=== PATIENT | male | born 1975 ===

== ENCOUNTER 2019-11-25 15:58 | Emergency (ER) | payer OTHER ==
--- NOTE | 2019-11-25 16:11 | EDM.PDOC ---
ED HPI GENERAL MEDICAL PROBLEM - General Chief Complaint: Lower Extremity Injury/Pain Stated Complaint: INJURY LT KNEE Time Seen by Provider: 11/25/19 15:59 Source of Information: Reports: Patient History Limitations: Reports: No Limitations - History of Present Illness INITIAL COMMENTS - FREE TEXT/NARRATIVE: HISTORY AND PHYSICAL: History of present illness: Patient is a 44-year-old male who presents to the emergency room with complaints of internal left knee pain. 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 He is able to bear weight and ambulate appropriately although has a dull nagging discomfort of the left lower extremity. He denies any direct injury or fall. Denies any numbness, tingling, saddle paresthesia or weakness. Denies any other extremity involvement. Offers no systemic complaints. Review of systems: As per history of present illness and below otherwise all systems reviewed and negative. Past medical history: As per history of present illness and as reviewed below otherwise noncontributory. Surgical history: As per history of present illness and as reviewed below otherwise no ncontributory. Social history: See social history for further information Family history: As per history of present illness and as reviewed below otherwise noncontributory. Physical exam: General: Well-developed and well-nourished 44-year-old male. Alert and oriented. Nontoxic-appearing and in no acute distress. HEENT: Atraumatic, normocephalic, pupils equal and reactive bilaterally, negati ve for conjunctival pallor or scleral icterus, mucous membranes moist, TMs normal bilaterally, throat clear, neck supple, nontender, trachea midline. No drooling or trismus noted. No meningeal signs. No hot potato voice noted. Lungs: Clear to auscultation, breath sounds equal bilaterally, chest nontender. Heart: S1S2, regular rate and rhythm without overt murmur Abdomen: Soft, nondistended, nontender. Negative for masses or hepatosplenomegaly. Negative for costovertebral tenderness. Skin: Intact, warm, dry. No lesions or rashes noted. Extremities: He moves all extremities per self without difficulty or deficits, negative for cords or calf pain. Denies any knee discomfort with palpation. Negative drawer test. No knee instability noted. No soft tissue swelling or erythema noted. Strong pedal pulse positive CMS. Neurovascular unremarkable. Neuro: Awake, alert, oriented. Cranial nerves II through XII unremarkable. Cerebellum unremarkable. Motor and sensory unremarkable throughout. Exam nonfocal. Notes: Did discuss the limitations of the emergency room, he is agreeable to an x-ray at this time. We discussed the likelihood of him needing further imaging such as an MRI at a later date if pain continues. His x-ray shows no acute findings. Knee patellar cut out and crutches were given for the left knee injury. I do suspect possibly an internal knee injury which will require further imaging. We discussed signs and symptoms that would prompt him to return to the emergency room. Follow-up, medication and supportive care measures were reviewed and discussed. Voices understanding and is agreeable to plan of care. Denies any further questions or concerns at this time. Diagnostics: Knee x-ray Therapeutics: Patellar cut out splint, crutches Prescription: Diclofenac, Tramadol Impression: Left knee injury Plan: 1. X-ray shows no bony abnormalities. As we discussed, I suspect an internal knee injury which at some point may require an MRI. This would need to be orde red by your primary care provider or orthopedic provider. Rest, ice, elevate the affected extremity. Please wear the splint as directed. 2. Tylenol and/or Ibuprofen as needed for pain management. Diclofenac is an NSAID that was prescribed, if you take this medication do not take any additional Ibuprofen or Aleve. Please take with food. Tramadol for moderate to severe pain. May cause some drowsiness, so do not take while needing to drive or function outside the house. 3. Follow up with the Orthopedic provider as we discussed. Return to the ED as needed and as discussed. Definitive disposition and diagnosis as appropriate pending reevaluation and review of above. Left Knee Pain Score (Numeric/FACES): 3 - Related Data Allergies Allergy/AdvReac Type Severity Reaction Status Date / Time No Known Allergies Allergy Verified 11/25/19 16:24 Home Meds: Home Meds Diclofenac Sodium [Voltaren] 75 mg PO BIDMEALS PRN #30 tab.cr 11/25/19 [Rx] traMADol [Ultram] 50 mg PO Q4H PRN #15 tab 11/25/19 [Rx] Review of Systems - Review of Systems Review Of Systems: Comprehensive ROS is negative, except as noted in HPI. ED EXAM, GENERAL - Physical Exam Exam: See Below (See dictation) Course - Vital Signs Last Recorded V/S: Last Vital Signs Temp 96.5 F L 11/25/19 16:21 Pulse 93 11/25/19 16:21 Resp 16 11/25/19 16:21 BP 88/55 L 11/25/19 16:21 Pulse Ox 96 11/25/19 16:21 - Orders/Labs/Meds Orders: Active Orders 24 hr Category Date Time Status DME for Discharge [COMM] Stat Oth 11/25/19 16:34 Ordered Departure - Departure Time of Disposition: 19:00 Disposition: Home, Self-Care 01 Clinical Impression: Left knee injury Qualifiers: Encounter type: initial encounter Qualified Code(s): S89.92XA - Unspecified injury of left lower leg, initial encounter - Discharge Information Prescriptions: traMADol [Ultram] 50 mg PO Q4H PRN #15 tab PRN Reason: Pain Diclofenac Sodium [Voltaren] 75 mg PO BIDMEALS PRN #30 tab.cr PRN Reason: Pain Instructions: Knee Sprain, Adult, [id number] Referrals: PCP,None [Primary Care Provider] - Forms: ED Department Discharge Additional Instructions: The following information is given to patients seen in the emergency department who are being discharged to home. This information is to outline your options for follow-up care. We provide all patients seen in our emergency department with a follow-up referral. The need for follow-up, as well as the timing and circumstances, are variable depending upon the specifics of your emergency department visit. If you don't have a primary care physician on staff, we will provide you with a referral. We always advise you to contact your personal physician following an emergency department visit to inform them of the circumstance of the visit and for follow-up with them and/or the need for any referrals to a consulting specialist. The emergency department will also refer you to a specialist when appropriate. This referral assures that you have the opportunity for follow-up care with a specialist. All of these measure are taken in an effort to provide you with optimal care, which includes your follow-up. Under all circumstances we always encourage you to contact your private physician who remains a resource for coordinating your care. When calling for follow-up care, please make the office aware that this follow-up is from your recent emergency room visit. If for any reason you are refused follow-up, please contact the [facility] Emergency Department at and asked to speak to the emergency department charge nurse. [facility] [address] [place] [address] [id number] Thank you for choosing the [facility] emergency department in [place] for your medical needs today. It was a pleasure caring for you. You were seen in the emergency department for left knee injury. 1. X-ray shows no bony abnormalities. As we discussed, I suspect an internal knee injury which at some point may require an MRI. This would need to be ordered by your primary care provider or orthopedic provider. Rest, ice, elevate the affected extremity. Please wear the splint as directed. 2. Tylenol and/or Ibuprofen as needed for pain management. Diclofenac is an NSAID that was prescribed, if you take this medication do not take any akilah tional Ibuprofen or Aleve. Please take with food. Tramadol for moderate to severe pain. May cause some drowsiness, so do not take while needing to drive or function outside the house. 3. Follow up with the Orthopedic provider as we discussed. Return to the ED as needed and as discussed. Sepsis Event Note (ED) - Focused Exam Vital Signs: Vital Signs Temp Pulse Resp BP Pulse Ox 11/25/19 16:21 96.5 F L 93 16 88/55 L 96 - My Orders Last 24 Hours: My Active Orders 11/25/19 16:34 DME for Discharge [COMM] Stat - Assessment/Plan Last 24 Hours: My Active Orders 11/25/19 16:34 DME for Discharge [COMM] Stat
--- NOTE | 2019-11-25 17:50 | CR ---
Left knee: AP, lateral and sunrise patellar views of the left knee were obtained. Comparison: No previous knee study. Medial and lateral joint compartments are maintained in height. No joint effusion is seen. Patellofemoral joint is within normal limits. No fracture or other abnormality is appreciated. Impression: 1. No abnormality is appreciated on 3 view left knee exam. Diagnostic code #1 This report was dictated in MDT
== END 2019-11-25 17:43 | disposition home or self-care (01) ==
LOC: MW.ED 15:58
DX: S89.92XA Unspecified injury of left lower leg, initial encounter (principal); X58.XXXA Exposure to other specified factors, initial encounter; Y99.0 Civilian activity done for income or pay
CPT/HCPCS: 73562-26-LT; 73562-LT; 99283; 99283-25